=== PATIENT | male | born 1940 | race Caucasian/White ===

== ENCOUNTER → 2020-03-16 | Outpatient (CLI) | payer MEDICARE, OTHER ==
[~2020-03-16] MED LIST: ASPI-496 PO; CLAR500T3 PO; DRON400T PO; ERYT250C37 PO; LOSA25TA25 PO; NEBI5TAB3 PO; PANT20TA4 PO; TAMS0.4C2 PO
[2020-03-16 13:48] LABS: ALANINE AMINOTRANSFERASE 17 U/L (12-78); ANION GAP 5 mmol/L (5-15); CALCIUM 9.7 mg/dL (8.5-10.1); CHLORIDE 107 mmol/L (98-107); CREATININE 1.27 mg/dL (0.7-1.3)
[2020-03-16 13:51] LABS: ALKALINE PHOSPHATASE 72 U/L (45-117); BILIRUBIN,TOTAL 0.7 mg/dL (0.2-1.0); TOTAL PROTEIN 7.2 g/dL (6.4-8.2)
== END | disposition home or self-care (01) ==
LOC: STAR 11:13
PROVIDERS: ATTEND Thoracic Surgery (Cardiothoracic Vascular Surgery)
DX: Z01.812 Encounter for preprocedural laboratory examination (principal); Z20.828 Contact with and (suspected) exposure to other viral communicable diseases; I48.91 Unspecified atrial fibrillation; R94.31 Abnormal electrocardiogram [ECG] [EKG]
CPT/HCPCS: 36415; 80053; 87635; 93005

== ENCOUNTER 2020-03-21 09:34 | Observation (INO) | payer MEDICARE, OTHER ==
[~2020-03-21] VITALS: Ht 182.9 cm; Wt 86.7 kg
[2020-03-21 10:10] VITALS: BP 146/87
[2020-03-21] MEDS ORDERED: NEBI10TA3 PO (10:18)
[2020-03-21] MEDS ORDERED: RIVA20TA PO (10:19)
[2020-03-21] MEDS ORDERED: VENL75TA2 PO (10:22)
[2020-03-21] MEDS ORDERED: MULT-717 PO (10:22)
[2020-03-21] MEDS ORDERED: ROSU10TA2 PO (10:22)
[2020-03-21] MEDS ORDERED: TAPE50TA9 PO (10:22)
[2020-03-21] MEDS ORDERED: CHLORHEXIDINE 15 ML UDC ONE (10:27)
[2020-03-21] MEDS ORDERED: FENTANYL PF 250 MCG/5ML ONE (10:29)
[2020-03-21] MEDS ORDERED: LACTATED RINGERS 1,000 ML IV SCH (10:30)
[2020-03-21] MEDS ORDERED: CHLORHEXIDINE 15 ML UDC MM ONE (10:30)
[2020-03-21] MEDS ORDERED: BUPIVACAINE/PF 0.5% ONE (11:38)
[2020-03-21] MEDS ORDERED: EPINEPHRINE 1 MG/ML, 1ML ONE (11:38)
[2020-03-21] MEDS ORDERED: PHENYLEPHRINE 10 MG/ML ONE (11:52)
[2020-03-21] MEDS ORDERED: BUPIVACAINE/PF-EPI 0.5% 1:200K INFIL ONE (12:06)
[2020-03-21] MEDS ORDERED: OXYcodone 5 MG/5 ML ORAL.SOL UDC PO PRN (12:30)
[2020-03-21] MEDS ORDERED: hydrALAzine 20 MG/ML, 1ML IV PRN ×2 (12:30→13:30)
[2020-03-21] MEDS ORDERED: PROMETHAZINE 25 MG/ML, 1ML IVPush PRN (12:30)
[2020-03-21] MEDS ORDERED: HYDROmorphone 1 MG/ML, 1ML INJ IVPush PRN (12:30)
[2020-03-21] MEDS ORDERED: METHOCARBAMOL 1,000 MG in DEXTROSE 5% 100 ML IV PRN (12:30)
[2020-03-21] MEDS ORDERED: ALBUTEROL SULFATE 2.5 MG/3 ML NPPB PRN (12:30)
[2020-03-21] MEDS ORDERED: LABETALOL 5MG/ML, 20ML IV PRN (12:30)
[2020-03-21] MEDS ORDERED: ACETAMINOPHEN 325 MG TABLET PO PRN (12:30)
[2020-03-21] MEDS ORDERED: LORazepam 2 MG/ML, 1ML IVPush PRN (12:30)
[2020-03-21] MEDS ORDERED: GLYCOPYRROLATE 0.2MG/1ML, 5ML ONE (13:05)
[2020-03-21] MEDS ORDERED: DEXAMETHASONE 4 MG/ML, 1ML ONE (13:05)
[2020-03-21] MEDS ORDERED: NEOSTIGMINE 1 MG/ML, 10ML ONE (13:05)
[2020-03-21] MEDS ORDERED: CEFAZOLIN 1,000 MG ONE (13:05)
[2020-03-21] MEDS ORDERED: ROCURONIUM 10MG/ML,5ML ONE (13:05)
[2020-03-21] MEDS ORDERED: ONDANSETRON 2MG/ML, 2ML ONE (13:05)
[2020-03-21] MEDS ORDERED: PROPOFOL 10 MG/ML, 20ML ONE (13:05)
[2020-03-21] MEDS ORDERED: ONDANSETRON 2MG/ML, 2ML IVPush PRN (13:30)
[2020-03-21] MEDS ORDERED: ENALAPRILAT 1.25 MG/ML, 2ML IV PRN (13:30)
[2020-03-21] MEDS: LACTATED RINGERS 1,000 ML IV SCH ×2 (13:30→21:25)
[2020-03-21] MEDS: FAMOTIDINE 20 MG/2 ML IV SCH (13:30)
[2020-03-21] MEDS ORDERED: morphine SULFATE 10 MG/ML, 1ML IV PRN (13:30)
[2020-03-21] MEDS ORDERED: NEBIVOLOL HCL 5 MG TABLET PO ONE (14:00)
[2020-03-21] MEDS ORDERED: OXYcodone 5 MG/5 ML ORAL.SOL UDC ONE (14:05)
[2020-03-21] MEDS ORDERED: FENTANYL PF 100 MCG/2ML ONE (14:05)
[2020-03-21] MEDS: FENTANYL PF 100 MCG/2ML IV PRN ×2 (14:07→14:55)
[2020-03-21] MEDS: HYDROcodone/APAP 7.5-325MG/15ML UDC PO PRN ×2 (17:13→21:24)
[2020-03-21 18:51] VITALS: BP 116/79
[2020-03-22 00:38] VITALS: BP 126/81
[2020-03-22] MEDS: FAMOTIDINE 20 MG/2 ML IV SCH (01:50)
[2020-03-22] MEDS: HYDROcodone/APAP 7.5-325MG/15ML UDC PO PRN (01:50)
[2020-03-22 05:08] VITALS: BP 122/76
[2020-03-22] MEDS: LACTATED RINGERS 1,000 ML IV SCH (05:30)
[2020-03-22 07:25] VITALS: BP 127/91
[2020-03-22] MEDS ORDERED: LOSARTAN 25MG TABLET PO SCH (09:00)
[2020-03-22] MEDS ORDERED: TAMSULOSIN 0.4 MG CAP.ER.24H PO SCH (09:00)
[2020-03-22] MEDS ORDERED: ENOXAPARIN 40 MG/0.4 ML SQ SCH (09:00)
[2020-03-22] MEDS ORDERED: HYDR473S45 PO (10:41)
== END 2020-03-22 11:10 | disposition home or self-care (01) ==
LOC: OUT 09:34 → ORIP 13:45 → 3WST 15:37 → DCLOUNGE 03-22 10:56
PROVIDERS: ADMIT Thoracic Surgery (Cardiothoracic Vascular Surgery); ATTEND Thoracic Surgery (Cardiothoracic Vascular Surgery)
DX: K44.9 Diaphragmatic hernia without obstruction or gangrene (principal); I48.91 Unspecified atrial fibrillation; I10 Essential (primary) hypertension; K21.9 Gastro-esophageal reflux disease without esophagitis; N40.0 Benign prostatic hyperplasia without lower urinary tract symptoms; I25.810 Atherosclerosis of coronary artery bypass graft(s) without angina pectoris; Z79.899 Other long term (current) drug therapy; Z87.891 Personal history of nicotine dependence
CPT/HCPCS: 43282; 96361; 96372; 96374; C1781; G0378; J0171; J0690; J1100; J1650; J2370; J2405; J2704; J2710; J2800; J3010; J7120; S0020